=== PATIENT | female | born 1960 | race Two or more races ===

== ENCOUNTER → 2020-04-15 13:38 | Outpatient (BNVA) | payer OTHER, SELFPAY | PROVIDERS: PCP Internal Medicine; Referring Provider Internal Medicine; Visit Provider Internal Medicine Cardiovascular Disease | DX: I44.7 Left bundle-branch block, unspecified (principal); R07.89 Other chest pain; I10 Essential (primary) hypertension | CPT/HCPCS: 99213; Q3014 ==

== ENCOUNTER 2020-11-23 08:24 | Outpatient (REF) | payer MEDICAID, SELFPAY ==
--- NOTE | ~2020-11-23 | MM_ITS ---
EXAMINATION: MM SCREENING DIGITAL BREAST TOMOSYNTHESIS, BILATERAL CLINICAL INFORMATION: Screening. Asymptomatic. The lifetime risk of breast cancer based on the Tyrer-Cuzick Model is 5%. COMPARISON: Outside mammography: 04/06/2008 ([facility]). TECHNIQUE: Digital breast tomosynthesis is performed in both the craniocaudal and mediolateral oblique views along with computer-aided detection (CAD). Synthesized 2D images are generated from the tomosynthesis. FINDINGS: There are scattered areas of fibroglandular density (ACR BI-RADS breast composition Category b). Breast parenchymal pattern is predominantly fatty. Minor background stromal and fibroglandular densities are stable. There is asymmetry of the breasts, left larger, similar to prior outside exam. There is no interval mass or architectural abnormality. No abnormal calcifications. Left axillary node stable. Skin contours are smooth. MM/MM tomosynthesis screening BI IMPRESSION: No mammographic evidence of malignancy. ASSESSMENT: BI-RADS 2: Benign RECOMMENDATION: Routine annual mammography screening. This patient's information was entered into a reminder system with a target due date for their next mammogram.
== END 2020-11-23 08:25 | disposition home or self-care (01) ==
LOC: HO.MAMMO 08:24
PROVIDERS: PCP Internal Medicine; Visit Provider Internal Medicine
DX: Z12.31 Encounter for screening mammogram for malignant neoplasm of breast (principal)
CPT/HCPCS: 77063; 77067

== ENCOUNTER → 2022-12-17 08:56 | Outpatient (REF) | payer MEDICAID, SELFPAY ==
--- NOTE | 2022-12-17 08:57 | CA_ITS ---
Transthoracic Echocardiogram Patient (Last, First, Middle): Elizabeth Chase, Gender: Female Date of : 1960 Age: 62 Procedure Date: 12/17/2022 Procedure Type: Transthoracic Echocardiogram Location: OP Height: 152.4 cm Weight: 81.65 kg BSA: 1.78 m2 Heart Rate: 65 bpm BP: 110 / 60 mmHg Slubber Hand: PERI Referring MD: Opal Mathew MD Symptoms: Essential hypertension Study Quality: Fair ECG Rhythm: Sinus Conclusions: - The left ventricular systolic function is normal. The calculated ejection fraction is 60% by biplane method. - No obvious valvular pathology seen on this study. Findings Left Ventricle Normal left ventricular cavity size. The left ventricular systolic function is normal. The calculated ejection fraction is 60% by biplane method. There is no evidence of regional wall motion abnormalities. Diastolic function is indeterminate on the basis of available data. There is mild septal asymmetric hypertrophy. Right Ventricle Normal right ventricular cavity size and systolic function. Atria Both atria are normal in size. Aortic Valve There is a normal trileaflet aortic valve. There is no aortic valve stenosis. There is no aortic valve regurgitation. Mitral Valve The mitral valve appears normal. There is no mitral valve regurgitation. There is no mitral valve stenosis. Pulmonic Valve The pulmonic valve is likely normal. Tricuspid Valve There is no tricuspid valve regurgitation. Tricuspid regurgitation envelope is inadequate for calculation of right ventricular systolic pressure. Great Vessels The asc aorta is normal in size. Venous The inferior vena cava is normal in size and collapses greater than 50% with inspiration. Pericardium/Pleural There is a trivial pericardial effusion. Prior Study Comparison No prior study available for comparison. Recommendations, Care & Conclusions No obvious valvular pathology seen on this study. Measurements 2D Linear Measurements IVSd: 1.08 0.6-0.9/0.6-1.0 cm LVIDd: 3.71 3.9-5.3/4.2-5.9 cm LVIDd Index: 2.08 2.4-3.2/2.2-3.1 cm/m2 LVIDs: 2.44 2.0-3.6 cm LVPWd: 1.00 0.7-1.1 cm LA Diam: 3.20 2.7-3.8/3.0-4.0 cm LAIDs Index: 1.80 1.5-2.3 cm/m2 LV Mass: 148.76 67-162/88-224 g LV Mass Index: 83.57 43-95/49-115 g/m2 LVOT Diam: 1.80 3.0+(-)1.3 cm 2D Systolic Function EF 4C: 53.30 >55% EF 2C: 65.20 >55% EF BiP: 60.10 >55% Mitral Valve MV Pk E: 1.14 MV PK A: 1.19 MV Decel Time: 273.00 E/A: 1.00 E'Lateral: 6.20 E'Medial: 6.64 E/E' Med: 17.20 E/E' Lat: 18.40 PHT: 80.00 MVA PHT: 2.75 Decel [place]: 4.17 Aortic Valve AoV Pk Reynaldo: 1.41 AoV Mn Reynaldo: 0.99 AoV VTI: 0.32 AoV Pk Grad: 8.00 Aov Mn Grad: 4.00 WALLACE Cont.VTI: 1.77 LVOT LVOT Pk Reynaldo: 0.91 LVOT Mn Reynaldo: 0.69 LVOT VTI: 0.22 LVOT Pk Grad: 3.00 LVOT Mn Grad: 2.00 LVOT Diam: 1.80 LVOT Area: 2.54 Diastolic Function MV Pk E: 1.14 MV Pk A: 1.19 E/A: 1.00 E'Medial: 6.64 E/E' Med: 17.20 E' Laterial: 6.20 E/E' Lat: 18.40 Right Ventricle TAPSE (mm): 21.70 TVS' Reynaldo: 11.00 Tricuspid Valve RA Press: 3.00 Great Vessels Aorta Sinus of Valsalva: 2.90 2.0-3.5 cm Ao Asc: 2.90 2.1-3.4 cm Pulmonary Valve PV Pk Reynaldo: 1.28 Peak PV Grad: 7.00 Updated in Other Vendor System with Status of Final Delgado Frank MD electronically signed on 12/18/2022 2:25:38 PM with status of Final
== END ==
LOC: HO.CARD 08:56
PROVIDERS: PCP Internal Medicine; Visit Provider Internal Medicine
DX: R91.1 Solitary pulmonary nodule (principal); I10 Essential (primary) hypertension
CPT/HCPCS: 93306

== ENCOUNTER 2023-02-09 12:21 | Outpatient (REF) | payer MEDICAID, SELFPAY ==
[2023-02-09 14:35] LABS: MANUAL DIFF FLAG NO
[2023-02-09 14:46] LABS: Basophils Percent Auto 0.7 % (0-2); Eosinophils Absolute Auto 0.2 X10*3/uL (0.0-0.4); Eosinophils Percent Auto 2.8 % (0-4); Hematocrit 33.8 % (37.0-47.0); Hemoglobin 10.3 g/dl (12.0-16.0); Imm Gran Abs Auto 0.02 X10*3/uL (0.00-0.03); Imm Gran Pct Auto 0.3 % (0.0-0.4); Lymphocytes Absolute Auto 1.5 X10*3/uL (1.2-4.9); Lymphocytes Percent Auto 24.9 % (20-40); Mean Corpuscular HGB Conc 30.5 g/dl (31.0-35.0); Mean Corpuscular Hemoglobin 26.5 pg (27.0-33.0); Mean Corpuscular Volume 87.1 fL (80.0-98.0); Mean Platelet Volume 10.3 fL (9.4-12.3); Monocytes Absolute Auto 0.5 X10*3/uL (0.1-1.2); Monocytes Percent Auto 7.4 % (2-11); Neutrophils Absolute Auto 3.9 x10*3/uL (2.0-8.3); Neutrophils Percent Auto 63.9 % (45-73); Platelet Count 378 X10*3/uL (160-400); Red Blood Count 3.88 X10*6/uL (4.20-5.50); Red Cell Distribution Width 13.9 % (11.0-16.0); White Blood Count 6.1 X10*3/uL (4.8-10.8)
[2023-02-09 15:23] LABS: Iron 50 mcg/dL (30-160); Percent Iron Saturation 18 % (15-50); Total Iron Binding Capacity 280 mcg/dL (228-428); Unsaturated Iron Binding 230 ug/dL
[2023-02-09 15:38] LABS: Ferritin 52 ng/mL (10-250)
== END 2023-02-09 12:22 | disposition home or self-care (01) ==
LOC: HO.CHCLNP 12:21
PROVIDERS: Visit Provider Internal Medicine
DX: D50.9 Iron deficiency anemia, unspecified (principal)
CPT/HCPCS: 36415; 82728; 83540; 85025

== ENCOUNTER 2023-03-02 14:20 | Outpatient (REF) | payer MEDICAID, SELFPAY ==
[2023-03-03 17:56] LABS: CT PCR NOT DETECTED (Not Detect.); NG PCR NOT DETECTED (Not Detect.)
[2023-03-04 12:07] LABS: BV Int Neg Control Negative (Negative); BV Int Pos Control Positive (Positive)
== END 2023-03-02 14:21 | disposition home or self-care (01) ==
LOC: HO.HHCLNP 14:20
PROVIDERS: Visit Provider Emergency Medicine
DX: Z11.3 Encounter for screening for infections with a predominantly sexual mode of transmission (principal); R30.0 Dysuria
CPT/HCPCS: 0353U; 87086; 87480; 87510; 87660

== ENCOUNTER 2023-03-22 09:33 | Outpatient (REF) | payer MEDICAID, SELFPAY ==
[2023-03-22 14:12] LABS: MANUAL DIFF FLAG NO
[2023-03-22 14:15] LABS: Basophils Percent Auto 0.5 % (0-2); Eosinophils Absolute Auto 0.1 X10*3/uL (0.0-0.4); Eosinophils Percent Auto 2.3 % (0-4); Hemoglobin 10.9 g/dl (12.0-16.0); Imm Gran Abs Auto 0.02 X10*3/uL (0.00-0.03); Imm Gran Pct Auto 0.3 % (0.0-0.4); Immature Retic Fraction 14.6 % (3.0-15.9); Lymphocytes Absolute Auto 1.3 X10*3/uL (1.2-4.9); Lymphocytes Percent Auto 20.3 % (20-40); Mean Corpuscular HGB Conc 30.3 g/dl (31.0-35.0); Mean Corpuscular Volume 89.1 fL (80.0-98.0); Mean Platelet Volume 10.3 fL (9.4-12.3); Monocytes Absolute Auto 0.4 X10*3/uL (0.1-1.2); Neutrophils Absolute Auto 4.4 x10*3/uL (2.0-8.3); Neutrophils Percent Auto 70.6 % (45-73); Platelet Count 372 X10*3/uL (160-400); Red Blood Count 4.04 X10*6/uL (4.20-5.50); Red Cell Distribution Width 13.5 % (11.0-16.0); Reticulocyte Percent 2.1 % (0.5-1.8); Reticulocytes Absolute 0.085 X10*6/uL (0.026-0.095); White Blood Count 6.2 X10*3/uL (4.8-10.8)
[2023-03-22 14:34] LABS: Iron 48 mcg/dL (30-160); Percent Iron Saturation 18 % (15-50); Total Iron Binding Capacity 261 mcg/dL (228-428); Unsaturated Iron Binding 213 ug/dL
[2023-03-22 14:49] LABS: Ferritin 43 ng/mL (10-250)
== END 2023-03-22 09:34 | disposition home or self-care (01) ==
LOC: HO.CHCLDS 09:33
PROVIDERS: Visit Provider Internal Medicine
DX: N89.8 Other specified noninflammatory disorders of vagina (principal); D50.9 Iron deficiency anemia, unspecified
CPT/HCPCS: 36415; 82728; 83540; 85025; 85045; 87086; 87147

== ENCOUNTER 2023-07-23 08:48 | Outpatient (REF) | payer MEDICAID, SELFPAY ==
[2023-07-23 14:46] LABS: Anion Gap 14 (12-20); Blood Urea Nitrogen 27 mg/dL (9-16); Calcium 9.2 mg/dL (8.4-10.2); Carbon Dioxide 25 mmol/L (22-29); Chloride 105 mmol/L (96-108); Estimated Glomerular Filt Rate 42; Glucose Fasting 212 mg/dL (60-99); Potassium 4.1 mmol/L (3.3-5.1); Sodium 140 mmol/L (135-145)
[2023-07-23 15:11] LABS: Creatinine Urine 74.34 mg/dL; Microalbum/Creatinine Ratio Ur 10.7 ug/mg cr (<30)
== END 2023-07-23 08:49 | disposition home or self-care (01) ==
LOC: HO.CHCLDS 08:48
PROVIDERS: Visit Provider Internal Medicine
DX: E11.69 Type 2 diabetes mellitus with other specified complication (principal); Z79.4 Long term (current) use of insulin
CPT/HCPCS: 36415; 80048; 82043; 82570

== ENCOUNTER 2024-03-24 11:20 | Outpatient (REF) | payer MEDICAID, SELFPAY ==
--- NOTE | ~2024-03-24 | XR_ITS ---
EXAMINATION: XR CHEST CLINICAL INFORMATION: Cough, rhonchi and fever. COMPARISON: None available. TECHNIQUE: 2 views of the chest were obtained. FINDINGS: The lungs are adequately expanded. No focal consolidation. No pleural effusions or pneumothorax. The cardiomediastinal silhouette is within normal limits. No acute osseous abnormality. Degenerative changes of the thoracic spine. Surgical clips in the right upper quadrant. Aortic arch calcifications. XR/XR chest 2V IMPRESSION: No acute pulmonary disease. Electronically signed by: Vishal Mrianda MD 03/24/2024 03:19 PM EDT
== END 2024-03-24 11:21 | disposition home or self-care (01) ==
LOC: HO.HHCX 11:20
PROVIDERS: Visit Provider Nurse Practitioner Family
DX: R05.1 Acute cough (principal)
CPT/HCPCS: 71046

== ENCOUNTER 2025-02-07 08:54 | Outpatient (REF) | payer MEDICAID, SELFPAY ==
--- OUTSIDE RECORDS SUMMARY | 2025-02-07 09:13 | XMS_ITS | Clinical Summary ---
Author Organization [facility] Address [address] [place] [id number] Phone Care Team Providers Care Jewelry Consultant Name Role Phone Opal Mathew MD Primary Care Pr ovider Allergies Active Allergy Reactions Criticality Noted Date Comments Ciprofloxacin 06/29/2021 Medications atorvastatin (LIPITOR) 40 MG tablet Take 40 mg by mouth nightly at bedtime. Active carvedilol (COREG) 3.125 MG tablet Take 3.125 mg by mouth 2 (two) times a day with meals. Active metFORMIN (GLUCOPHAGE) 1000 MG tablet Take 1,000 mg by mouth 2 (two) times a day with meals. Active SITagliptin (JANUVIA) 100 MG tablet Take 100 mg by mouth daily. Active lisinopril-hydr oCHLOROthiazide (PRINZIDE,ZESTO RETIC) 10-12.5 mg per tablet Take 1 tablet by mouth daily. Active sertraline (ZOLOFT) 25 MG tablet Take 25 mg by mouth daily. Active levothyroxine (SYNTHROID, LEVOTHROID) 88 MCG tablet Take 88 mcg by mouth every morning. Active cyclobenzaprine (FLEXERIL) 10 MG tablet Take 1 tablet (10 mg total) by mouth 3 (three) times a day as needed. 15 tablet 06/29/2021 Active lidocaine (LIDODERM) 5 % Place 1 patch onto the skin daily. Remove & Discard patch within 12 hours or as directed by 7 patch 06/29/2021 Active ibuprofen (ADVIL,MOTRIN) 600 MG tablet Take 1 tablet (600 mg total) by mouth every 8 (eight) hours as needed for pain (specific location in comments). 15 tablet 06/29/2021 Active acetaminophen (TYLENOL) 500 MG tablet Take 1 tablet (500 mg total) by mouth every 8 (eight) hours as needed for pain (specific location in comments). 30 tablet 06/29/2021 Active oxyCODONE 5 MG immediate release tablet Take 1 tablet (5 mg total) by mouth every 6 (six) hours as needed for severe pain. Partial fill ok 10 tablet 07/13/2021 Active Social History Tobacco Use Types Packs/Day Years Used Date Smoking Tobacco: Never Smokeless Tobacco: Never Alcohol Use Standard Drinks/Week Comments Never 0 (1 standard drink = 0.6 oz pur e alcohol) Education Answer Date Recorded Are you interested in more education? Not on sol e 10/24/2022 Are you concerned about learning? Not on file 10/24/2022 No 10/24/2022 No 10/24/2022 Digital Access Answer Date Recorded No 11/24/2022 No 11/24/2022 Reliable internet access at home? Not on file 11/24/2022 Device with a working camera? Not on file Comments Unknown Sex and Gender Information Value Date Recorded Sex Assigned at Female 07/10/2021 10:01 AM EST Legal Sex Female 9:16 AM EST Gender Identity Female 07/10/2021 10:01 AM EST Sexual Orientation Not on file Last Filed Vital Signs Vital Sign Reading Time Taken Comments Blood Pressure 151/61 01/02/2022 4:41 PM EDT Pulse 71 01/02/2022 4:41 PM EDT Temperature 2.5 C (36.5 F) 01/02/2022 4:41 PM EDT Respiratory Rate 18 01/02/2022 4:41 PM EDT Oxygen Saturation 98% 01/02/2022 4:41 PM EDT Inhaled Oxygen Concentration - - Weight 77.1 kg (170 lb) 07/13/2021 12:07 AM EST Height 152.4 cm (5') 07/13/2021 12:07 AM EST Body Mass Index 33.2 07/13/2021 12:07 AM EST Plan of Treatment Health Maintenance Due Date Last Done Comments Adult Td,Tdap Booster 1960 CREATININE LEVEL 1960 LIPID PANEL 1960 POTASSIUM LEVEL 1960 TSH LEVEL 1960 DEPRESSION SCREENING 1973 HEPATITIS C SCREENING 1979 HIV ONE-TIME SCREENING (18-6 5 YEARS) 1979 PAP SMEAR 1982 SMOKING STATUS SCREENING (On ce After 26 Yrs) 1987 MAMMOGRAM 2001 COLOGUARD 2006 COLONOSCOPY 2006 COLORECTAL CANCER SCREENING 2006 FIT TEST 2006 FOBT 2006 SIGMOIDOSCOPY 2006 VIRTUAL COLONOSCOPY 2006 PNEUMOCOCCAL VACCINES (50+ y ears) (1 of 1 - PCV) 2011 ZOSTER VACCINES (1 of 2) 2011 COVID-19 VACCINE ( - 2023-2 5 season) 2024 RSV VACCINE (1 - 1-dose 75+ series) 2036 HEPATITIS A VACCINES Aged Out No long er eligible based on patient's age to complete this topic HIB VACCINES Aged Out No longer eligi ble based on patient's age to complete this topic MENINGOCOCCAL VACCINES (ACWY) Aged Out No longer eligible based on patient's age to complete this topic MENINGOCOCCAL VACCINES (B) Aged Out N o longer eligible based on patient's age to complete this topic Medical Devices Not on file [place] [address] [address] C3 ACO C3 ACO C3 ACO C3 ACO ACO C3 ACO C3 ACO C3 ACO [facility] C3 ACO Care Teams Jewelry Consultant Relationship Specialty Start Date End Date Opal Mathew MD [address] [place] [address] [place] [id number] PCP - General Internal Medicine 06/29/21 Additional Source Comments The information contained in this document represents components of the legal health record. It is not the complete legal health record.[facility]
--- OUTSIDE RECORDS SUMMARY | 2025-02-07 09:13 | XMS_ITS | Clinical Summary ---
Author Organization [facility] Address [address] [place] [address] Phone Care Team Providers Care Coal Washer Name Role Phone Opal Mathew MD Primary Care Provider [phone] Allergies Active Allergy Reactions Criticality Noted Date Comments Ciprofloxacin Rash 09/08/2024 Surgical History Surgery Date Site/Laterality Comments OTHER SURGICAL HISTORY PROCEDURE: [place] ECTOPIC ABDOMINAL/VAGINAL APPR CHOLECYSTECTOMY 1980 PROCEDURE: HISTORICAL CHOLECYSTECTOMY OTHER SURGICAL HISTORY 1980 PROCEDURE: [place] HYSTEROSCOPY ENDOMETRIAL ABLATION TUBAL LIGATION 1980 PROCEDURE: HISTORICAL TUBAL LIGATION Medical History Medical History Date Comments Diabetes mellitus type 2, uncontrolled, without complications 10/17/2015 DX:Diabetes mellit us type 2, uncontrolled, without complications Heart murmur 02/14/2016 DX:Heart murmur; COMMENT: Ll/Vl DEVI Eczema 02/14/2016 DX:Eczema Osteoarthritis 12/18/2015 DX:Osteoarthriti s IBS (irritable bowel syndrome) 02/14/2016 D X:IBS (irritable bowel syndrome) Vitamin D deficiency 02/14/2016 DX:Vitamin D deficiency Family History Medical History Relation Name Comments Hypertension Brother 1 Hypertension Brother 2 Hypertension Brother 3 Hyperlipidemia Father Heart attack Grandparent 1 GF, Diabetes Stroke Grandparent 2 GM. Diabetes Diabetes Mother Asthma, Arthrit is,Migraine,Thyroid disease Colon cancer Other 1 Great Aunt Anemia Sister 1 Relation Name Status Comments Brother 1 Brother 2 Brother 3 Brother 4 Father Grandparent 1 Grandparent 2 Grandparent 3 Mother Other 1 Other 2 Sister 1 Sister 2 Social History Tobacco Use Types Packs/Day Years Used Date Smoking Tobacco: Never Smokeless Tobacco: Never Alcohol Use Standard Drinks/Week Comments No 0 (1 standard drink = 0.6 oz pur e alcohol) Comments Unknown Sex and Gender Information Value Date Recorded Sex Assigned at Not on file Legal Sex Female 1:55 AM EST Gender Identity Not on file Sexual Orientation Not on file Obstetrics History Last Filed Vital Signs Vital Sign Reading Time Taken Comments Blood Pressure 129/66 09/09/2024 2:03 AM EDT Pulse 66 09/09/2024 2:03 AM EDT Temperature 36.7 C (98.1 F) 09/09/2024 2:03 AM EDT Respiratory Rate 16 09/09/2024 2:03 AM EDT Oxygen Saturation 100% 09/09/2024 2:03 AM EDT Inhaled Oxygen Concentration - - Weight 86.3 kg (190 lb 3.2 oz) 09/08/2024 9:29 P M EDT Height 152.4 cm (5') 09/08/2024 9:29 PM EDT Body Mass Index 37.15 09/08/2024 9:29 PM EDT Plan of Treatment Health Maintenance Due Date Last Done Comments Diabetes: Annual Foot Exam 1971 Diabetes: Annual Retina Eye Exam 1971 Cervical Cancer Screening: Pap Smear 1982 Zoster Vaccines (1 of 2) 2011 RSV Immunization Adult Patients (1 - Risk 60-74 years 1-dose series) 2021 Colorectal Cancer Screening: Colonoscopy 05/31/2022 HIV Screening 05/31/2022 Hepatitis C Screening 05/31/2022 Social Influencers of Health Screening 05/31/2022 Diabetes: Annual Urine Albumin-Creatinine Ratio (uACR) 06/12/2022 Breast Cancer Screening 11/23/2022 11/23/2020 Depression Screening 06/28/2024 Diabetes: Blood Sugar Control Test (HGBA1C) 02/04/2025 08/07/2024 Influenza Vaccine (#1) 2025 , 04/04/2023, 06/25/2022, Additional history exists Diabetes: Annual GFR (Glomerular Filtration Rate) 09/08/2025 09/08/2024 Hypertension/CHF/CAD Annual BMP Blood Test 09/08/2025 09/08/2024 Cholesterol Screening (Lipid Panel) 12/19/2027 12/18/2022 DTaP,Tdap,and Td Vaccines (2 - Td or Tdap) 08/27/2029 08/28/2019 COVID-19 Vaccine Completed 04/21/2024, 01/2023, 06/20/2022, Additional history exists Pneumococcal Vaccine: 50+ Years Completed 04/21/2024, 11/21/2021 HIB Vaccines Aged Out No longer eligi ble based on patient's age to complete this topic HPV Vaccines Aged Out No longer eligi ble based on patient's age to complete this topic Hepatitis A Vaccines Aged Out No long er eligible based on patient's age to complete this topic Hepatitis B Vaccines Aged Out No long er eligible based on patient's age to complete this topic IPV Vaccines Aged Out No longer eligi ble based on patient's age to complete this topic MMR Vaccines Aged Out No longer eligi ble based on patient's age to complete this topic Meningococcal ACWY Vaccine Aged Out N o longer eligible based on patient's age to complete this topic Meningococcal B Vaccine Aged Out No l onger eligible based on patient's age to complete this topic RSV Immunization Patients Under 20 months Aged Out No longer eligible based on patient's age to complete this topic Varicella Vaccines Aged Out No longer eligible based on patient's age to complete this topic Procedures Procedure Name Priority Date/Time Associated Diagnosis Comments COMPREHENSIVE METABOLIC PANEL STAT 09/08/2024 9:34 PM EDT from Last 3 Months or Most Recently Relevant to Health Maintenance Results * (ABNORMAL) Comprehensive metabolic panel (09/08/2024 9:34 PM EDT) Sodium 140 133 - 145 mmol/L LAB CHEMISTRY METHOD 09/08/2024 10:08 PM [facility] Potassium 4.2 3.5 - 5.5 mmol/L LAB CHEMISTRY METHOD 09/08/2024 10:08 PM [facility] Chloride 107 96 - 110 mmol/L LAB CHEMISTRY METHOD 09/08/2024 10:08 PM [facility] CO2 26 21 - 32 mmol/L LAB CHEMISTRY METHOD 09/08/2024 10:08 PM [facility] Anion Gap 7 3 - 11 LAB CHEMISTRY METHOD 09/08/2024 10:08 PM [facility] Glucose 160(H) 70 - 100 mg/dL LAB CHEMISTRY METHOD 09/08/2024 10:08 PM [facility] BUN 23 5 - 25 mg/dL LAB CHEMISTRY METHOD 09/08/2024 10:08 PM [facility] Creatinine 1.18(H) 0.50 - 1.10 mg/dL LAB CHEMISTRY METHOD 09/08/2024 10:08 PM [facility] eGFR 52(L) >=60 mL/min/1. 73m2 LAB CHEMISTRY METHOD 09/08/2024 10:08 PM [facility] Comment:Calculation based on the Chronic Kidney Disease Epidemiology Collaboration (CKD-EPI) equation refit without adjustment for race. BUN/Creatinine Ratio 19.5 LAB CHEMISTRY METHOD 09/08/2024 10:08 PM [facility] Calcium 9.2 8.5 - 10.5 mg/dL LAB CHEMISTRY METHOD 09/08/2024 10:08 PM [facility] AST (SGOT) 18 10 - 42 unit/L LAB CHEMISTRY METHOD 09/08/2024 10:08 PM [facility] ALT (SGPT) 22 10 - 60 unit/L LAB CHEMISTRY METHOD 09/08/2024 10:08 PM [facility] Alkaline Phosphatase 115 42 - 121 unit/L LAB CHEMISTRY METHOD 09/08/2024 10:08 PM [facility] Total Protein 7.1 6.0 - 8.0 g/dL LAB CHEMISTRY METHOD 09/08/2024 10:08 PM [facility] Albumin 3.6 3.2 - 5.0 g/dL LAB CHEMISTRY METHOD 09/08/2024 10:08 PM [facility] Total Bilirubin 0.8 0.0 - 1.4 mg/dL LAB CHEMISTRY METHOD 09/08/2024 10:08 PM [facility] Blood Venous blood specimen / Unknown Venipuncture / Unknown 09/08/2024 9:34 PM EDT 09/08/2024 9:40 PM EDT us Evelia Mckinnon Henry DO LAB BLOOD ORDERABLES Neeta l Result [facility] [address] [place] [address], [place] [phone] from Last 3 Months or Most Recently Relevant to Health Maintenance Insurance MEDICAID - [place] Care Teams Coal Washer Relationship Specialty Start Date End Date Opal Mathew MD [address] [place], [place] PCP - General Internal Medicine 04/30/21
[2025-02-07 14:47] LABS: Alanine Aminotransferase 20 U/L (0-31); Albumin Level 4.2 g/dL (3.5-5.0); Alkaline Phosphatase 92 U/L (39-117); Anion Gap 14 (12-20); Aspartate Amino Transferase 25 U/L (5-31); Blood Urea Nitrogen 20 mg/dL (9-16); Calcium 9.2 mg/dL (8.4-10.2); Carbon Dioxide 25 mmol/L (22-29); Chloride 106 mmol/L (96-108); Cholesterol 146 mg/dL (<200); Estimated Glomerular Filt Rate 46; HDL Cholesterol 56 mg/dL (>40); Potassium 4.3 mmol/L (3.3-5.1); Sodium 141 mmol/L (135-145); Total Protein 7.4 g/dL (6.5-8.0); Triglycerides 141 mg/dL (<150)
[2025-02-07 14:59] LABS: Microalbum/Creatinine Ratio Ur 9.4 ug/mg cr (<30)
[2025-02-08 04:28] LABS: ~HepC Num1 0.12 S/CO (0.00-0.79); ~Hepatitis C Antibody Nonreactive (Nonreactive)
== END 2025-02-07 08:55 | disposition home or self-care (01) ==
LOC: HO.CHCLDS 08:54
PROVIDERS: Visit Provider Internal Medicine
DX: Z11.59 Encounter for screening for other viral diseases (principal); E11.65 Type 2 diabetes mellitus with hyperglycemia; Z79.4 Long term (current) use of insulin; E78.5 Hyperlipidemia, unspecified; E03.9 Hypothyroidism, unspecified
CPT/HCPCS: 36415; 80053; 80061; 82043; 82570; 84443; 86803